=== PATIENT | male | born 1960 | race Caucasian/White ===

== ENCOUNTER 2017-01-30 16:25 | Emergency (ER) | payer OTHER ==
[~2017-01-30] VITALS: Ht 180.3 cm; Wt 137.9 kg
--- NOTE | ~2017-01-30 | EKG ---
[place], [place] ELECTROCARDIOGRAM REPORT NAME: BAO CAMPBELL UNIT #: [id number] ROOM: DOCTOR: RENATO GIRALDO MD BIRTHDATE: [birth year] DOS: 01/30/2017 TIME: 1644 hours. FINDINGS: 1. Sinus rhythm at the rate of 65 with first-degree AV block. 2. Nonspecific lateral T-wave abnormalities. 3. Significant baseline artifact. 4. Abnormal electrocardiogram. RENATO GIRALDO MD CM:EKGRPT:ELECTROCARDIOGRAM REPORT [id number] RENATO GIRALDO MD
[~2017-01-30 16:25] MED LIST: ALBUTEROL0.09 MG/Ac IH; ALLOPURINOL300 MG PO; AMLODIPINE BESY10 MG PO; ASMANEX TW0.22 MG/AC IH; ASPI-COR81 M1 PO; BUPROPION HCL150 M1; DAYPRO600 M1 PO; ERGOCALCIFER50000 IU PO; HYDROXYZINE PAM50 MG PO; KEFLEX500 MG PO; LANTUS SOLOS100 U/M1 SC; LEVITRA20 MG PO; LISINOPRIL20 MG PO; LITHIUM CARBON300 MG PO; LOPRESSOR50 MG PO; METFORMIN HCL1000 MG PO; NASALIDE0.025 MG/A NS; NORMAL SALINE FL1 ML IV; OMEPRAZOLE20 MG PO; PHENERGAN25 M1 PO; SINGULAIR10 MG PO; TRAZODONE HCL50 MG PO; VICODIN 5/500 505 MG PO; VICODIN 500 MG-1 TAB PO
[2017-01-30 16:30] VITALS: BP 152/82
[2017-01-30 16:54] LABS: BASO # 0.1 10*3/uL (0.0-0.1); BASO % 0.9 % (0.0-1.0); EOS # 0.5 10*3/uL (0.0-0.4); EOS % 5.5 % (1.0-4.0); HEMATOCRIT 39.8 % (42.0-52.0); HEMOGLOBIN 13.9 g/dl (14.0-18.0); IG # 0.1 10*3/uL (0.0-0.1); LYMPH # 1.7 10*3/uL (1.3-4.4); LYMPH % 19.3 % (27.0-41.0); MEAN CELL VOLUME 85.2 fl (80.0-94.0); MEAN CORPUSCULAR HGB 29.8 pg (27.0-31.0); MEAN CORPUSCULAR HGB CONC 34.9 g/dl (33.0-37.0); MEAN PLATELET VOLUME 8.8 fl (9.6-12.3); MONO # 0.5 10*3/uL (0.1-1.0); NEUT # 5.9 10*3/uL (2.3-7.9); NEUT % 67.5 % (47.0-73.0); PLATELET COUNT AUTOMATED 237 10*3/uL (130-400); RED BLOOD COUNT 4.67 10*6/uL (4.50-5.90); RED CELL DISTRI WIDTH 13.8 % (0-14.5); WHITE BLOOD COUNT 8.8 10*3/uL (4.8-10.8)
[2017-01-30 17:11] LABS: ALBUMIN 3.5 gm/dl (3.1-4.5); ALKALINE PHOSPHATASE 82 U/L (45-117); BILIRUBIN, TOTAL 0.4 mg/dl (0.2-1.0); BUN 13 mg/dl (7-24); CARBON DIOXIDE 30 mmol/L (21-32); CHLORIDE 102 mmol/L (98-107); EST GLOM FILT AFRICAN AMERICAN > 60 ml/min; GLUCOSE 146 mg/dL (65-99); POTASSIUM 4.1 mmol/L (3.5-5.1); SGOT/AST 21 IU/L (3-35); SGPT/ALT 27 U/L (12-78); SODIUM 142 mmol/L (136-145); TOTAL PROTEIN 6.6 gm/dL (6.4-8.2)
[2017-01-30 17:12] LABS: TROPONIN I < 0.015 ng/ml (<0.045)
[2017-01-30] MEDS ORDERED: PREDNISONE10 MG PO (18:05)
[2017-01-30] MEDS ORDERED: VIBRAMYCIN100 MG PO (18:05)
== END 2017-01-30 18:19 | disposition home or self-care (01) ==
LOC: ED 16:25
PROVIDERS: Physician Assistant
DX: J40 Bronchitis, not specified as acute or chronic (principal); J45.909 Unspecified asthma, uncomplicated; F17.200 Nicotine dependence, unspecified, uncomplicated; Z79.82 Long term (current) use of aspirin; Z79.899 Other long term (current) drug therapy

== ENCOUNTER → 2019-07-15 | Outpatient (CLI) | payer OTHER ==
[~2019-07-15] MED LIST changes: +ADULT TUSS100 MG/5 M PO; +ALDACTONE25 M1 PO; +APRESOLINE25 MG PO; +CARVEDILOL25 MG PO; +DEPAKOTE ER500 MG PO; +HYDRALAZINE HYD50 MG PO; +LANTUS SOL100 UNIT/1 SQ; +LASIX20 MG PO; +LEVEMIR100 UNIT/1 SQ; +LIPITOR20 MG PO; +LISINOPRIL40 MG PO; +LORATADINE10 M3 PO; +NOVOLOG FL100 UNIT/2 SQ; +NOVOLOG100 UNIT/1 SQ; +PANTOPRAZOLE SO40 MG PO; +PREDNISONE10 MG PO; +SERTRALINE HYD100 MG PO; +SINGULAIR10 M1 PO; +VIBRAMYCIN100 MG PO; +VOLTAREN100 GM T
== END | disposition home or self-care (01) ==
LOC: US 14:41
DX: I65.23 Occlusion and stenosis of bilateral carotid arteries (principal)

== ENCOUNTER 2019-12-27 13:13 | Inpatient (IN) | payer OTHER ==
[~2019-12-27] VITALS: Ht 180.3 cm; Wt 147.6 kg
[~2019-12-27 13:13] MED LIST changes: +GLUCOPHAGE1000 MG PO; -METFORMIN HCL1000 MG PO
[2019-12-27 13:16] VITALS: BP 127/55
[2019-12-27 13:45] LABS: BASO # 0.1 10*3/uL (0.0-0.1); BASO % 0.8 % (0.0-1.0); EOS # 0.3 10*3/uL (0.0-0.4); EOS % 3.5 % (1.0-4.0); HEMATOCRIT 31.7 % (42.0-52.0); HEMOGLOBIN 10.3 g/dl (14.0-18.0); LYMPH # 1.5 10*3/uL (1.3-4.4); LYMPH % 20.4 % (27.0-41.0); MEAN CELL VOLUME 94.6 fl (80.0-94.0); MEAN CORPUSCULAR HGB 30.7 pg (27.0-31.0); MEAN CORPUSCULAR HGB CONC 32.5 g/dl (33.0-37.0); MEAN PLATELET VOLUME 9.1 fl (9.6-12.3); MONO # 0.6 10*3/uL (0.1-1.0); MONO % 7.7 % (3.0-9.0); NEUT # 4.8 10*3/uL (2.3-7.9); NEUT % 66.3 % (47.0-73.0); PLATELET COUNT AUTOMATED 174 10*3/uL (130-400); RED BLOOD COUNT 3.35 10*6/uL (4.50-5.90); RED CELL DISTRI WIDTH 14.1 % (0-14.5); WHITE BLOOD COUNT 7.2 10*3/uL (4.8-10.8)
[2019-12-27 14:01] LABS: ALBUMIN 3.2 gm/dl (3.1-4.5); ALKALINE PHOSPHATASE 82 U/L (45-117); BUN 34 mg/dl (7-24); CHLORIDE 105 mmol/L (98-107); CREATININE 1.72 mg/dL (0.70-1.30); POTASSIUM 4.4 mmol/L (3.5-5.1); SGOT/AST 6 IU/L (3-35); SGPT/ALT 26 U/L (12-78); SODIUM 138 mmol/L (136-145); TOTAL PROTEIN 6.6 gm/dL (6.4-8.2)
[2019-12-27 14:03] LABS: TROPONIN I < 0.015 ng/ml (<0.045)
[2019-12-27 14:05] LABS: RETICULOCYTE % 3.12 % (0.50-2.50)
[2019-12-27 14:15] LABS: IRON 78 ug/dL (65-175); TOTAL IRON BINDING CAPACITY 254 ug/dl (250-450)
[2019-12-27 14:35] LABS: BILIRUBIN 1+ (NEGATIVE); BLOOD NEGATIVE (NEGATIVE); CLARITY CLEAR (CLEAR); COLOR YELLOW (YELLOW); GLUCOSE NEGATIVE (NEGATIVE); KETONE NEGATIVE (NEGATIVE); SPECIFIC GRAVITY 1.025 (1.005-1.030)
[2019-12-27 14:36] LABS: BACTERIA 1+; LEUKO ESTERASE NEGATIVE (NEGATIVE); NITRITE NEGATIVE (NEGATIVE); UROBILINOGEN 0.2 E.U./dl (0.2-1.0)
[2019-12-27 14:47] VITALS: BP 171/84; BP 171/87
[2019-12-27] MEDS ORDERED: VENTOLIN 02.5 MG/3 M INH (15:02)
[2019-12-27] MEDS ORDERED: NORVASC10 MG PO (15:03)
[2019-12-27] MEDS ORDERED: OMEPRAZOLE MAGN20 MG PO (15:05)
[2019-12-27] MEDS ORDERED: Amaryl2 MG PO (15:10)
[2019-12-27] MEDS ORDERED: PERPHENAZINE4 M1 PO (15:12)
[2019-12-27 16:00] VITALS: BP 149/63
[2019-12-27 19:45] VITALS: BP 184/82
[2019-12-27 20:00] VITALS: BP 180/76
[2019-12-28] VITALS (7 sets, daily range): BP systolic 156–196; BP diastolic 55–80
[2019-12-28 06:11] LABS: BASO # 0.1 10*3/uL (0.0-0.1); BASO % 0.8 % (0.0-1.0); EOS # 0.4 10*3/uL (0.0-0.4); EOS % 5.2 % (1.0-4.0); HEMATOCRIT 31.5 % (42.0-52.0); HEMOGLOBIN 10.4 g/dl (14.0-18.0); LYMPH # 1.6 10*3/uL (1.3-4.4); MEAN CELL VOLUME 92.4 fl (80.0-94.0); MEAN CORPUSCULAR HGB 30.5 pg (27.0-31.0); MEAN PLATELET VOLUME 9.2 fl (9.6-12.3); MONO # 0.7 10*3/uL (0.1-1.0); NEUT # 4.2 10*3/uL (2.3-7.9); NEUT % 59.6 % (47.0-73.0); PLATELET COUNT AUTOMATED 177 10*3/uL (130-400); RED BLOOD COUNT 3.41 10*6/uL (4.50-5.90); RED CELL DISTRI WIDTH 13.6 % (0-14.5); WHITE BLOOD COUNT 7.1 10*3/uL (4.8-10.8)
[2019-12-28 06:12] LABS: ALBUMIN 3.1 gm/dl (3.1-4.5); ALKALINE PHOSPHATASE 65 U/L (45-117); BUN 29 mg/dl (7-24); CHLORIDE 107 mmol/L (98-107); CHOLESTEROL 151 mg/dL (<200); CREATININE 1.35 mg/dL (0.70-1.30); FREE T4 0.77 ng/dl (0.76-1.46); HDL CHOLESTEROL 22 mg/dl (40-60); PHOSPHOROUS 3.7 mg/dL (2.5-4.9); POTASSIUM 4.3 mmol/L (3.5-5.1); SGOT/AST 15 IU/L (3-35); SGPT/ALT 24 U/L (12-78); SODIUM 142 mmol/L (136-145); TOTAL PROTEIN 6.1 gm/dL (6.4-8.2); TRIGLYCERIDES 504 mg/dl (<150)
[2019-12-28 06:35] LABS: ACT PARTIAL THROMBO TIME 25.4 SECONDS (20.0-32.1); INTERNATIONAL NORM RATIO 0.9 (2.0-3.5)
[2019-12-29] VITALS (9 sets, daily range): BP systolic 158–189; BP diastolic 70–88
[2019-12-29 05:52] LABS: BUN 21 mg/dl (7-24); CHLORIDE 106 mmol/L (98-107); CREATININE 1.14 mg/dL (0.70-1.30); POTASSIUM 4.1 mmol/L (3.5-5.1); SODIUM 140 mmol/L (136-145)
[2019-12-29 06:09] LABS: BASO # 0.1 10*3/uL (0.0-0.1); EOS # 0.5 10*3/uL (0.0-0.4); EOS % 6.4 % (1.0-4.0); HEMATOCRIT 33.8 % (42.0-52.0); HEMOGLOBIN 11.2 g/dl (14.0-18.0); LYMPH # 1.7 10*3/uL (1.3-4.4); LYMPH % 23.9 % (27.0-41.0); MEAN CELL VOLUME 91.1 fl (80.0-94.0); MEAN CORPUSCULAR HGB 30.2 pg (27.0-31.0); MEAN CORPUSCULAR HGB CONC 33.1 g/dl (33.0-37.0); MONO # 0.6 10*3/uL (0.1-1.0); MONO % 8.6 % (3.0-9.0); NEUT # 4.1 10*3/uL (2.3-7.9); NEUT % 58.8 % (47.0-73.0); PLATELET COUNT AUTOMATED 200 10*3/uL (130-400); RED BLOOD COUNT 3.71 10*6/uL (4.50-5.90); RED CELL DISTRI WIDTH 13.5 % (0-14.5)
[2019-12-29] MEDS ORDERED: ACCU-CHEK1 EAC2 MC (14:13)
[2019-12-29] MEDS ORDERED: BIOTENE MOIST44.3 ML PO (14:14)
[2019-12-29] MEDS ORDERED: TESSALON PERLE100 MG PO (14:15)
[2019-12-29] MEDS ORDERED: BUSPIRONE10 MG PO (14:16)
[2019-12-29] MEDS ORDERED: PERIOGARD 473473 ML PO (14:18)
[2019-12-29] MEDS ORDERED: VITAMIN D32000 UNI2 PO (14:19)
[2019-12-29] MEDS ORDERED: ROBITUSSIN5 ML PO (14:20)
[2019-12-29] MEDS ORDERED: DOXEPIN HCL10 MG PO (14:21)
[2019-12-29] MEDS ORDERED: FLUTICASONE-SA1 EAC3 INH (14:23)
[2019-12-29] MEDS ORDERED: 24 HOUR ALLER15.8 ML NAS (14:25)
[2019-12-29] MEDS ORDERED: FUROSEMIDE20 M1 PO (14:26)
[2019-12-29] MEDS ORDERED: HALDOL5 MG PO (14:28)
[2019-12-29] MEDS ORDERED: HYDRALAZINE HYD50 MG PO (14:29)
[2019-12-29] MEDS ORDERED: KERODEX 71113 GM T (14:30)
[2019-12-29] MEDS ORDERED: PREDNISONE20 M1 PO (14:38)
[2019-12-29] MEDS ORDERED: NEILMED SINUS1 EACH NAS (14:41)
[2019-12-29] MEDS ORDERED: AYR SALINE 50 M50 ML NAS (14:42)
[2019-12-29] MEDS ORDERED: PROVENTIL HFA6.7 GM INH (14:46)
[2019-12-29] MEDS ORDERED: MELATONIN5 M6 PO (14:47)
[2019-12-29] MEDS ORDERED: AFRIN15 ML NAS (14:49)
[2019-12-29] MEDS ORDERED: INSULIN SYRING1 EA33 MC (14:55)
[2019-12-30] VITALS: BP 180/82
[2019-12-30 04:00] VITALS: BP 159/83
[2019-12-30 08:00] VITALS: BP 146/54
[2019-12-30] MEDS ORDERED: HYDRALAZINE HC100 MG PO (10:46)
[2019-12-30] MEDS ORDERED: NIFEDIPINE ER90 M1 PO (10:46)
== END 2019-12-30 13:56 | disposition home or self-care (01) | DRG 377 ==
LOC: ED 13:13 → 4E 14:09 → EDHOLD 14:09 → 4E 14:33
PROVIDERS: Emergency Medicine; Internal Medicine; Student in an Organized Health Care Education/Training Program; ADMIT Internal Medicine
DX: K92.2 Gastrointestinal hemorrhage, unspecified (principal); N17.0 Acute kidney failure with tubular necrosis; I49.8 Other specified cardiac arrhythmias; I95.9 Hypotension, unspecified; D50.0 Iron deficiency anemia secondary to blood loss (chronic); D72.810 Lymphocytopenia; D53.9 Nutritional anemia, unspecified; E11.65 Type 2 diabetes mellitus with hyperglycemia; J45.909 Unspecified asthma, uncomplicated; M19.90 Unspecified osteoarthritis, unspecified site; E78.5 Hyperlipidemia, unspecified; K21.9 Gastro-esophageal reflux disease without esophagitis; I16.0 Hypertensive urgency; I11.9 Hypertensive heart disease without heart failure; E83.51 Hypocalcemia; F43.10 Post-traumatic stress disorder, unspecified; E86.0 Dehydration; G47.33 Obstructive sleep apnea (adult) (pediatric); M10.9 Gout, unspecified; E66.01 Morbid (severe) obesity due to excess calories; Z91.09 Other allergy status, other than to drugs and biological substances; Z79.4 Long term (current) use of insulin; Z87.891 Personal history of nicotine dependence; Z83.3 Family history of diabetes mellitus; Z68.42 Body mass index [BMI] 45.0-49.9, adult; Z82.61 Family history of arthritis; Z79.82 Long term (current) use of aspirin; Z79.899 Other long term (current) drug therapy

== ENCOUNTER 2020-01-13 16:33 | Inpatient (IN) | payer OTHER ==
[~2020-01-13] VITALS: Ht 180.3 cm; Wt 143.9 kg
[~2020-01-13 16:33] MED LIST changes: +24 HOUR ALLER15.8 ML NAS; +ACCU-CHEK1 EAC2 MC; +AFRIN15 ML NAS; +AYR SALINE 50 M50 ML NAS; +Amaryl2 MG PO; +BIOTENE MOIST44.3 ML PO; +BUSPIRONE10 MG PO; +DOXEPIN HCL10 MG PO; +FLUTICASONE-SA1 EAC3 INH; +FUROSEMIDE20 M1 PO; +HALDOL5 MG PO; +HYDRALAZINE HC100 MG PO; +INSULIN SYRING1 EA33 MC; +KERODEX 71113 GM T; +MELATONIN5 M6 PO; +NEILMED SINUS1 EACH NAS; +NIFEDIPINE ER90 M1 PO; +NORVASC10 MG PO; +OMEPRAZOLE MAGN20 MG PO; +PERIOGARD 473473 ML PO; +PERPHENAZINE4 M1 PO; +PREDNISONE20 M1 PO; +PROVENTIL HFA6.7 GM INH; +ROBITUSSIN5 ML PO; +TESSALON PERLE100 MG PO; +VENTOLIN 02.5 MG/3 M INH; +VITAMIN D32000 UNI2 PO
[2020-01-13 16:43] VITALS: BP 177/71
[2020-01-13 17:11] VITALS: BP 161/75
[2020-01-13 17:21] LABS: BASO # 0.1 10*3/uL (0.0-0.1); BASO % 1.2 % (0.0-1.0); EOS # 0.3 10*3/uL (0.0-0.4); EOS % 4.1 % (1.0-4.0); HEMATOCRIT 32.5 % (42.0-52.0); LYMPH # 1.1 10*3/uL (1.3-4.4); LYMPH % 14.4 % (27.0-41.0); MEAN CELL VOLUME 91.5 fl (80.0-94.0); MEAN CORPUSCULAR HGB CONC 33.8 g/dl (33.0-37.0); MEAN PLATELET VOLUME 8.4 fl (9.6-12.3); MONO # 0.5 10*3/uL (0.1-1.0); MONO % 6.6 % (3.0-9.0); NEUT # 5.5 10*3/uL (2.3-7.9); NEUT % 72.9 % (47.0-73.0); PLATELET COUNT AUTOMATED 189 10*3/uL (130-400); RED BLOOD COUNT 3.55 10*6/uL (4.50-5.90); RED CELL DISTRI WIDTH 13.4 % (0-14.5); WHITE BLOOD COUNT 7.6 10*3/uL (4.8-10.8)
[2020-01-13 17:38] LABS: BUN 29 mg/dl (7-24); CHLORIDE 105 mmol/L (98-107); CREATININE 1.58 mg/dL (0.70-1.30); POTASSIUM 4.3 mmol/L (3.5-5.1); SODIUM 140 mmol/L (136-145)
[2020-01-13 17:41] LABS: TROPONIN I < 0.015 ng/ml (<0.045)
[2020-01-13 18:23] VITALS: BP 153/79
[2020-01-13 19:50] VITALS: BP 150/82
[2020-01-14] VITALS: BP 156/69
[2020-01-14] MEDS ORDERED: HYDRALAZINE HC100 MG PO (00:39)
[2020-01-14] MEDS ORDERED: PROCARDIA XL90 MG PO (00:40)
[2020-01-14] MEDS ORDERED: FLONASE ALLERG9.9 ML NAS (00:51)
[2020-01-14] MEDS ORDERED: FLUTICASONE-SA1 EAC3 INH (00:57)
[2020-01-14] MEDS ORDERED: 24 HOUR ALLER15.8 ML INH (00:58)
[2020-01-14 04:56] VITALS: BP 151/61
[2020-01-14 08:00] VITALS: BP 149/66
[2020-01-14 08:34] LABS: BASO # 0.1 10*3/uL (0.0-0.1); BASO % 1.1 % (0.0-1.0); EOS # 0.3 10*3/uL (0.0-0.4); HEMATOCRIT 33.5 % (42.0-52.0); LYMPH # 1.5 10*3/uL (1.3-4.4); LYMPH % 22.3 % (27.0-41.0); MEAN CORPUSCULAR HGB 30.7 pg (27.0-31.0); MEAN CORPUSCULAR HGB CONC 33.7 g/dl (33.0-37.0); MEAN PLATELET VOLUME 8.6 fl (9.6-12.3); MONO # 0.5 10*3/uL (0.1-1.0); MONO % 7.5 % (3.0-9.0); NEUT # 4.2 10*3/uL (2.3-7.9); NEUT % 63.6 % (47.0-73.0); PLATELET COUNT AUTOMATED 190 10*3/uL (130-400); RED BLOOD COUNT 3.68 10*6/uL (4.50-5.90); RED CELL DISTRI WIDTH 13.5 % (0-14.5); WHITE BLOOD COUNT 6.6 10*3/uL (4.8-10.8)
[2020-01-14 09:06] LABS: BUN 24 mg/dl (7-24); CHLORIDE 106 mmol/L (98-107); CREATININE 1.29 mg/dL (0.70-1.30); PHOSPHOROUS 4.6 mg/dL (2.5-4.9); POTASSIUM 3.8 mmol/L (3.5-5.1); SODIUM 139 mmol/L (136-145)
[2020-01-14 12:00] VITALS: BP 112/74
[2020-01-14 16:00] VITALS: BP 151/75
[2020-01-14 20:00] VITALS: BP 160/65
[2020-01-15] VITALS: BP 161/72
[2020-01-15 06:03] LABS: BUN 22 mg/dl (7-24); CHLORIDE 104 mmol/L (98-107); CREATININE 1.25 mg/dL (0.70-1.30); SODIUM 139 mmol/L (136-145)
[2020-01-15 06:05] LABS: BASO # 0.1 10*3/uL (0.0-0.1); BASO % 1.4 % (0.0-1.0); EOS # 0.4 10*3/uL (0.0-0.4); EOS % 5.6 % (1.0-4.0); HEMATOCRIT 32.5 % (42.0-52.0); LYMPH # 1.7 10*3/uL (1.3-4.4); LYMPH % 26.3 % (27.0-41.0); MEAN CELL VOLUME 90.5 fl (80.0-94.0); MEAN CORPUSCULAR HGB 30.4 pg (27.0-31.0); MEAN CORPUSCULAR HGB CONC 33.5 g/dl (33.0-37.0); MEAN PLATELET VOLUME 8.7 fl (9.6-12.3); MONO # 0.5 10*3/uL (0.1-1.0); MONO % 7.7 % (3.0-9.0); NEUT # 3.8 10*3/uL (2.3-7.9); NEUT % 58.2 % (47.0-73.0); PLATELET COUNT AUTOMATED 187 10*3/uL (130-400); RED BLOOD COUNT 3.59 10*6/uL (4.50-5.90); RED CELL DISTRI WIDTH 13.2 % (0-14.5); WHITE BLOOD COUNT 6.6 10*3/uL (4.8-10.8)
[2020-01-15 06:41] LABS: BILIRUBIN NEGATIVE (NEGATIVE); BLOOD NEGATIVE (NEGATIVE); CLARITY CLEAR (CLEAR); COLOR YELLOW (YELLOW); EPITHELIAL CELLS 0-2; GLUCOSE NEGATIVE (NEGATIVE); KETONE NEGATIVE (NEGATIVE); LEUKO ESTERASE NEGATIVE (NEGATIVE); NITRITE NEGATIVE (NEGATIVE); SPECIFIC GRAVITY 1.015 (1.005-1.030); UROBILINOGEN 0.2 E.U./dl (0.2-1.0)
[2020-01-15 08:00] VITALS: BP 160/70
[2020-01-15 13:00] VITALS: BP 142/64
[2020-01-15 13:05] VITALS: BP 152/70
[2020-01-15] MEDS ORDERED: HYDRALAZINE HYD50 MG PO (13:29)
[2020-01-15] MEDS ORDERED: MINOXIDIL2.5 MG PO (13:29)
[2020-01-15] MEDS ORDERED: ALDACTONE25 MG PO (13:30)
[2020-01-20 09:02] LABS: METANEPHRINE, PLASMA 11 pg/mL (0-62)
[2020-01-20 09:39] LABS: NORMETANEPHRINE, PLASMA 45 pg/mL (0-145)
== END 2020-01-15 15:34 | disposition home or self-care (01) | DRG 304 ==
LOC: ED 16:33 → EDHOLD 18:35 → 4E 18:35
PROVIDERS: Emergency Medicine; Hospitalist; Internal Medicine Nephrology; Student in an Organized Health Care Education/Training Program; ADMIT Internal Medicine
DX: I16.1 Hypertensive emergency (principal); N17.0 Acute kidney failure with tubular necrosis; Z68.41 Body mass index [BMI] 40.0-44.9, adult; E11.65 Type 2 diabetes mellitus with hyperglycemia; E78.5 Hyperlipidemia, unspecified; F43.10 Post-traumatic stress disorder, unspecified; E66.01 Morbid (severe) obesity due to excess calories; E78.00 Pure hypercholesterolemia, unspecified; J45.909 Unspecified asthma, uncomplicated; K21.9 Gastro-esophageal reflux disease without esophagitis; G47.33 Obstructive sleep apnea (adult) (pediatric); M19.90 Unspecified osteoarthritis, unspecified site; I12.9 Hypertensive chronic kidney disease with stage 1 through stage 4 chronic kidney disease, or unspecified chronic kidney disease; N18.9 Chronic kidney disease, unspecified; Z83.3 Family history of diabetes mellitus; Z87.891 Personal history of nicotine dependence; Z79.84 Long term (current) use of oral hypoglycemic drugs; Z79.899 Other long term (current) drug therapy; Z79.82 Long term (current) use of aspirin; Z79.4 Long term (current) use of insulin; Z82.61 Family history of arthritis

== ENCOUNTER 2020-12-23 10:11 | Emergency (ER) | payer OTHER ==
[~2020-12-23] VITALS: Ht 180.3 cm; Wt 136.1 kg
[~2020-12-23 10:11] MED LIST changes: +24 HOUR ALLER15.8 ML INH; +ALDACTONE25 MG PO; +FLONASE ALLERG9.9 ML NAS; +MINOXIDIL2.5 MG PO; +PROCARDIA XL90 MG PO
[2020-12-23 10:20] VITALS: BP 138/61
[2020-12-23 11:20] LABS: BASO # 0.1 10*3/uL (0.0-0.1); BASO % 0.8 % (0.0-1.0); EOS # 0.3 10*3/uL (0.0-0.4); EOS % 3.3 % (1.0-4.0); HEMATOCRIT 42.6 % (42.0-52.0); LYMPH # 1.2 10*3/uL (1.3-4.4); LYMPH % 16.4 % (27.0-41.0); MEAN CELL VOLUME 89.1 fl (80.0-94.0); MEAN CORPUSCULAR HGB 29.1 pg (27.0-31.0); MEAN CORPUSCULAR HGB CONC 32.6 g/dl (33.0-37.0); MEAN PLATELET VOLUME 8.6 fl (9.6-12.3); MONO # 0.9 10*3/uL (0.1-1.0); MONO % 11.9 % (3.0-9.0); NEUT % 67.1 % (47.0-73.0); PLATELET COUNT AUTOMATED 213 10*3/uL (130-400); RED BLOOD COUNT 4.78 10*6/uL (4.50-5.90); RED CELL DISTRI WIDTH 13.9 % (0-14.5); WHITE BLOOD COUNT 7.5 10*3/uL (4.8-10.8)
[2020-12-23 11:30] LABS: ACT PARTIAL THROMBO TIME 27.6 SECONDS (20.0-32.1); INTERNATIONAL NORM RATIO 0.9 (2.0-3.5)
[2020-12-23 11:36] LABS: ALBUMIN 3.6 gm/dl (3.1-4.5); ALKALINE PHOSPHATASE 67 U/L (45-117); BUN 18 mg/dl (7-24); CHLORIDE 106 mmol/L (98-107); CREATININE 1.35 mg/dL (0.70-1.30); LIPASE 90 U/L (73-393); POTASSIUM 3.3 mmol/L (3.5-5.1); SGOT/AST 7 IU/L (3-35); SGPT/ALT 13 U/L (12-78); SODIUM 140 mmol/L (136-145); TOTAL PROTEIN 7.2 gm/dL (6.4-8.2)
[2020-12-23 11:38] LABS: TROPONIN I < 0.015 ng/ml (<0.045)
[2020-12-23 11:46] LABS: VALPROIC ACID (DEPAKENE) 106.6 ug/ml (50-100)
[2020-12-23] MEDS ORDERED: FLAGYL500 MG PO (14:14)
[2020-12-23] MEDS ORDERED: PHENERGAN25 M3 PO (14:14)
[2020-12-23] MEDS ORDERED: CIPRO500 MG PO (14:14)
== END 2020-12-23 14:38 | disposition home or self-care (01) ==
LOC: ED 10:11
PROVIDERS: Emergency Medicine
DX: K52.9 Noninfective gastroenteritis and colitis, unspecified (principal); E11.9 Type 2 diabetes mellitus without complications; J44.9 Chronic obstructive pulmonary disease, unspecified; I10 Essential (primary) hypertension; M10.9 Gout, unspecified; Z79.899 Other long term (current) drug therapy; Z79.4 Long term (current) use of insulin; Z79.82 Long term (current) use of aspirin; Z87.891 Personal history of nicotine dependence

== ENCOUNTER 2023-02-27 15:03 | Emergency (ER) | payer OTHER ==
[~2023-02-27] VITALS: Ht 180.3 cm; Wt 108.9 kg
[~2023-02-27 15:03] MED LIST changes: +CIPRO500 MG PO; +FLAGYL500 MG PO; -GLUCOPHAGE1000 MG PO; +GLUCOPHAGE500 MG PO; +PHENERGAN25 M3 PO
[2023-02-27 15:31] LABS: BASO # 0.1 10*3/uL (0.0-0.1); EOS # 0.2 10*3/uL (0.0-0.4); EOS % 1.9 % (1.0-4.0); HEMATOCRIT 38.8 % (42.0-52.0); LYMPH # 1.7 10*3/uL (1.3-4.4); LYMPH % 16.8 % (27.0-41.0); MEAN CELL VOLUME 90.9 fl (80.0-94.0); MEAN CORPUSCULAR HGB 28.3 pg (27.0-31.0); MEAN CORPUSCULAR HGB CONC 31.2 g/dl (33.0-37.0); MEAN PLATELET VOLUME 8.7 fl (9.6-12.3); MONO # 0.7 10*3/uL (0.1-1.0); MONO % 6.6 % (3.0-9.0); NEUT # 7.3 10*3/uL (2.3-7.9); NEUT % 72.9 % (47.0-73.0); PLATELET COUNT AUTOMATED 378 10*3/uL (130-400); RED BLOOD COUNT 4.27 10*6/uL (4.50-5.90); RED CELL DISTRI WIDTH 13.5 % (0-14.5); WHITE BLOOD COUNT 10.1 10*3/uL (4.8-10.8)
[2023-02-27 15:42] LABS: ACT PARTIAL THROMBO TIME 30.9 SECONDS (20.0-32.1)
[2023-02-27 16:00] LABS: ALKALINE PHOSPHATASE 77 U/L (46-116); BUN 29 mg/dl (9-23); CHLORIDE 104 mmol/L (98-107); LIPASE 41 U/L (12-53); POTASSIUM 4.7 mmol/L (3.4-5.1)
[2023-02-27 16:03] LABS: SGPT/ALT < 7 U/L (10-49)
[2023-02-27] MEDS ORDERED: LANTUS SOL100 UNIT/1 SC (20:34)
[2023-02-27] MEDS ORDERED: ALDACTONE25 M1 PO (20:35)
[2023-02-27] MEDS ORDERED: METOPROLOL SUC100 M1 PO (20:37)
[2023-02-27] MEDS ORDERED: OZEMPIC2 MG/0.71 SQ (20:38)
[2023-02-27] MEDS ORDERED: LASIX40 MG PO (20:38)
[2023-02-27] MEDS ORDERED: DULCOLAX STOOL100 M1 PO (20:39)
[2023-02-27] MEDS ORDERED: CLOPIDOGREL75 MG PO (20:40)
[2023-02-27] MEDS ORDERED: PROTONIX40 MG PO (20:42)
[2023-02-27] MEDS ORDERED: JARDIANCE25 MG PO (20:43)
[2023-02-27] MEDS ORDERED: RISPERIDONE1 MG PO (20:45)
[2023-02-27] MEDS ORDERED: FLOMAX0.4 MG PO (20:46)
[2023-02-27] MEDS ORDERED: ZOLOFT100 MG PO (20:46)
[2023-02-27] MEDS ORDERED: SINGULAIR10 M1 PO (20:47)
[2023-02-27] MEDS ORDERED: ACID REDUCER10 MG PO (20:48)
[2023-02-27] MEDS ORDERED: METFORMIN HYDR500 MG PO (20:48)
[2023-02-28 14:26] VITALS: BP 124/68
== END 2023-02-28 15:21 | disposition short-term general hospital (02) ==
LOC: ED 15:03
PROVIDERS: Emergency Medicine
DX: I47.20 Ventricular tachycardia, unspecified (principal); E11.9 Type 2 diabetes mellitus without complications; J44.9 Chronic obstructive pulmonary disease, unspecified; I10 Essential (primary) hypertension; M10.9 Gout, unspecified; Z98.890 Other specified postprocedural states; Z87.891 Personal history of nicotine dependence

== ENCOUNTER 2025-08-14 19:06 | Inpatient (IN) | payer OTHER ==
[~2025-08-14] VITALS: Ht 180.3 cm; Wt 136.6 kg
[~2025-08-14 19:06] MED LIST changes: +ACID REDUCER10 MG PO; +CLOPIDOGREL75 MG PO; +DULCOLAX STOOL100 M1 PO; +FLOMAX0.4 MG PO; +JARDIANCE25 MG PO; +LANTUS SOL100 UNIT/1 SC; +LASIX40 MG PO; +METFORMIN HYDR500 MG PO; +METOPROLOL SUC100 M1 PO; +OZEMPIC2 MG/0.71 SQ; +PROTONIX40 MG PO; +RISPERIDONE1 MG PO; +ZOLOFT100 MG PO
[2025-08-14 19:16] VITALS: BP 144/78
[2025-08-14] MEDS ORDERED: IOHEXOL 350 MG/ML 100 ML VIAL IV ONE ×2 (19:50→20:15)
[2025-08-14] MEDS ORDERED: SODIUM CHLORIDE 0.9% 100 ML BAG IV ONE ×2 (19:50→20:45)
[2025-08-14 20:12] LABS: BASO # 0.1 10*3/uL (0.0-0.1); BASO % 1.0 % (0.0-1.0); EOS # 0.4 10*3/uL (0.0-0.4); EOS % 5.1 % (1.0-4.0); MEAN CELL VOLUME 91.1 fl (80.0-94.0); MEAN CORPUSCULAR HGB 29.8 pg (27.0-31.0); MEAN PLATELET VOLUME 9.1 fl (9.6-12.3); MONO # 0.6 10*3/uL (0.1-1.0); MONO % 8.0 % (3.0-9.0); NEUT # 5.0 10*3/uL (2.3-7.9); NEUT % 63.1 % (47.0-73.0); NUCLEATED RED BLOOD CELL 0.0 % (0.0-0.0); NUCLEATED RED BLOOD CELL 0.0 10*3/uL (0.0-0.0); PLATELET COUNT AUTOMATED 197 10*3/uL (130-400); RED CELL DISTRI WIDTH 13.5 % (0-14.5)
[2025-08-14] MEDS ORDERED: SODIUM CHLORIDE 0.9% 100 ML IV ONE ×2 (20:15→21:11)
[2025-08-14 20:35] LABS: ACT PARTIAL THROMBO TIME 26.4 SECONDS (20.0-32.1); BUN 34 mg/dl (9-23); SGPT/ALT 17 U/L (5-49)
[2025-08-14 20:40] VITALS: BP 145/68
[2025-08-14] MEDS ORDERED: Iodixanol 320 100 ML VIAL IV ONE (20:45)
[2025-08-14] MEDS ORDERED: ASPIRIN 300 MG SUPP R ONE (20:50)
[2025-08-14] MEDS ORDERED: Clopidogrel Hydrogen Sulfate 75 MG TAB PO ONE ×2 (20:50→21:45)
[2025-08-14] MEDS ORDERED: ASPIRIN ENTERIC COATED 81 MG TAB PO ONE (21:10)
[2025-08-14] MEDS ORDERED: Iodixanol 320 100 ML VIAL ONE (21:11)
[2025-08-14] MEDS ORDERED: BISACODYL 10 MG SUPP R PRN (22:55)
[2025-08-14] MEDS ORDERED: ACETAMINOPHEN 650 MG SUPP R PRN (22:55)
[2025-08-14] MEDS ORDERED: ACETAMINOPHEN 325 MG TAB PO PRN (22:55)
[2025-08-14] MEDS ORDERED: BISACODYL 5 MG TAB PO PRN (22:55)
[2025-08-14] MEDS ORDERED: Acetaminophen/Hydrocodone 5 MG/325 MG TABLET PO PRN (22:55)
[2025-08-14] MEDS ORDERED: COREG25 MG PO (23:38)
[2025-08-14] MEDS ORDERED: SODIUM CHLORIDE 0.9% 1,000 ML IV ONE (23:50)
[2025-08-15 00:26] VITALS: BP 136/86
[2025-08-15] MEDS ORDERED: DOXYCYCLINE150 MG PO (00:32)
[2025-08-15] MEDS ORDERED: NATURE'S BLEND F1 MG PO (00:34)
[2025-08-15 01:30] VITALS: BP 135/70
[2025-08-15 06:22] LABS: BASO # 0.1 10*3/uL (0.0-0.1); BASO % 0.9 % (0.0-1.0); EOS # 0.4 10*3/uL (0.0-0.4); EOS % 5.9 % (1.0-4.0); MEAN CELL VOLUME 90.9 fl (80.0-94.0); MEAN CORPUSCULAR HGB 30.2 pg (27.0-31.0); MEAN PLATELET VOLUME 9.2 fl (9.6-12.3); MONO # 0.6 10*3/uL (0.1-1.0); MONO % 9.2 % (3.0-9.0); NEUT # 4.0 10*3/uL (2.3-7.9); NEUT % 62.7 % (47.0-73.0); NUCLEATED RED BLOOD CELL 0.0 % (0.0-0.0); NUCLEATED RED BLOOD CELL 0.0 10*3/uL (0.0-0.0); PLATELET COUNT AUTOMATED 173 10*3/uL (130-400); RED CELL DISTRI WIDTH 13.5 % (0-14.5)
[2025-08-15 06:26] LABS: BUN 28.0 mg/dl (9-23); LDL CHOLESTEROL 25.0 mg/dL (9-159)
[2025-08-15 06:36] LABS: VITAMIN D, 25-HYDROXY 34.7 ng/mL (30-100)
[2025-08-15 08:00] VITALS: BP 157/83
[2025-08-15] MEDS ORDERED: ASPIRIN ENTERIC COATED 81 MG TAB PO SCH (10:00)
[2025-08-15] MEDS ORDERED: Clopidogrel Hydrogen Sulfate 75 MG TAB PO SCH (10:00)
[2025-08-15] MEDS ORDERED: ATORVASTATIN CALCIUM 80 MG TAB PO SCH (10:00)
[2025-08-15 12:00] VITALS: BP 162/81
[2025-08-15 16:00] VITALS: BP 163/80
[2025-08-15 20:00] VITALS: BP 170/77
[2025-08-16] VITALS: BP 158/72
[2025-08-16 08:00] VITALS: BP 156/78
[2025-08-16] MEDS ORDERED: DEXTROSE 50% 25 GM/50 ML VIAL IV PRN (09:25)
[2025-08-16] MEDS ORDERED: INSULIN LISPRO 1 UNIT/0.01 ML SQ SCH (11:30)
[2025-08-16 12:00] VITALS: BP 171/76
[2025-08-16 16:00] VITALS: BP 161/75
[2025-08-16 20:00] VITALS: BP 177/81
[2025-08-16] MEDS ORDERED: Insulin Glargine, Recombinan 1 UNIT/0.01 ML SC SCH (22:00)
[2025-08-16] MEDS ORDERED: risperiDONE 1 MG TAB PO SCH (22:00)
[2025-08-16] MEDS ORDERED: CARVEDILOL 25 MG TAB PO SCH (22:00)
[2025-08-16] MEDS ORDERED: DIVALPROEX ER 250 MG TAB PO SCH (22:00)
[2025-08-16] MEDS ORDERED: Doxepin Hydrochloride 25 MG CAP PO SCH (22:00)
[2025-08-17] VITALS: BP 156/76
[2025-08-17 06:06] LABS: BASO # 0.1 10*3/uL (0.0-0.1); BASO % 1.5 % (0.0-1.0); EOS # 0.3 10*3/uL (0.0-0.4); EOS % 5.1 % (1.0-4.0); MEAN CELL VOLUME 89.8 fl (80.0-94.0); MEAN CORPUSCULAR HGB 30.0 pg (27.0-31.0); MEAN PLATELET VOLUME 9.0 fl (9.6-12.3); MONO # 0.6 10*3/uL (0.1-1.0); MONO % 10.3 % (3.0-9.0); NEUT # 3.7 10*3/uL (2.3-7.9); NEUT % 60.6 % (47.0-73.0); NUCLEATED RED BLOOD CELL 0.0 % (0.0-0.0); NUCLEATED RED BLOOD CELL 0.0 10*3/uL (0.0-0.0); PLATELET COUNT AUTOMATED 147 10*3/uL (130-400); RED CELL DISTRI WIDTH 13.3 % (0-14.5)
[2025-08-17 06:35] LABS: BUN 24.0 mg/dl (9-23)
[2025-08-17 08:00] VITALS: BP 148/73
[2025-08-17] MEDS ORDERED: NIFEdipine 30 MG TAB PO SCH (10:00)
[2025-08-17] MEDS ORDERED: CLOPIDOGREL75 MG PO (12:06)
[2025-08-17] MEDS ORDERED: ATORVASTATIN CA80 M1 PO (12:06)
== END 2025-08-17 13:30 | disposition home or self-care (01) | DRG 64 ==
LOC: ED 19:06 → EDHOLD 21:54 → 5E 21:54
PROVIDERS: Emergency Medicine; Student in an Organized Health Care Education/Training Program; ADMIT Internal Medicine; ATTEND Internal Medicine
DX: I63.59 Cerebral infarction due to unspecified occlusion or stenosis of other cerebral artery (principal); N17.0 Acute kidney failure with tubular necrosis; A69.20 Lyme disease, unspecified; G90.9 Disorder of the autonomic nervous system, unspecified; E87.8 Other disorders of electrolyte and fluid balance, not elsewhere classified; G47.33 Obstructive sleep apnea (adult) (pediatric); F43.10 Post-traumatic stress disorder, unspecified; Z96.653 Presence of artificial knee joint, bilateral; E11.65 Type 2 diabetes mellitus with hyperglycemia; E78.2 Mixed hyperlipidemia; M10.9 Gout, unspecified; I10 Essential (primary) hypertension; Z79.899 Other long term (current) drug therapy; Z79.01 Long term (current) use of anticoagulants; Z79.2 Long term (current) use of antibiotics; Z79.4 Long term (current) use of insulin; Z79.82 Long term (current) use of aspirin; Z95.0 Presence of cardiac pacemaker; Z87.891 Personal history of nicotine dependence; Z82.61 Family history of arthritis; Z83.3 Family history of diabetes mellitus; Z80.8 Family history of malignant neoplasm of other organs or systems